=== PATIENT | male | born 1965 | race African-American/Black ===

== ENCOUNTER 2016-12-17 13:08 | Emergency (ER) | payer SELFPAY ==
[~2016-12-17] VITALS: Ht 180.3 cm; Wt 68.0 kg
[~2016-12-17 13:08] MED LIST: ASPI81TA82 PO; ATOR40TA49 PO; LACT PO; LOPE2 PO; PHEN100 PO; PLAV75TA PO
[2016-12-17 13:14] VITALS: BP 122/61; PULSE 79; RESP 16; TEMP 98; O2SAT 100
[2016-12-17 13:17] VITALS: O2SAT 100
[2016-12-17] MEDS ORDERED: TETANUS/DIPHTHERIA TOXOID ADULT 0.5 ML VIAL IM ONE (13:30)
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
[2016-12-17] MEDS ORDERED: CEPH-460 PO (14:39)
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
== END 2016-12-17 15:05 | disposition home or self-care (01) ==
LOC: NEPD 13:08
DX: S41.112A Laceration without foreign body of left upper arm, initial encounter (principal); W26.8XXA Contact with other sharp object(s), not elsewhere classified, initial encounter; Z79.01 Long term (current) use of anticoagulants; Z86.73 Personal history of transient ischemic attack (TIA), and cerebral infarction without residual deficits; I25.10 Atherosclerotic heart disease of native coronary artery without angina pectoris; K21.9 Gastro-esophageal reflux disease without esophagitis; G40.909 Epilepsy, unspecified, not intractable, without status epilepticus; F17.200 Nicotine dependence, unspecified, uncomplicated; Z79.899 Other long term (current) drug therapy; Z23 Encounter for immunization
CPT/HCPCS: 73090; 90471; 90714